=== PATIENT | male | born 1950 | race Caucasian/White ===

== ENCOUNTER 2022-12-05 13:47 | Outpatient (OUT) | payer MEDICARE, OTHER, SELFPAY ==
[2022-12-05 15:06] LABS: Thyroid Stimulating Hormone 1.576 uIU/mL (0.358-3.740)
[2022-12-06 04:07] LABS: Vitamin B12 740 pg/mL (232-1245)
[2022-12-09 06:37] LABS: Methylmalonic Acid, Serum 122 nmol/L (0-378)
== END 2022-12-05 13:48 | disposition home or self-care (01) ==
LOC: LAB 13:53
PROVIDERS: PCP Family Medicine; Visit Provider Psychiatry & Neurology Neurology
DX: R41.3 Other amnesia (principal)
CPT/HCPCS: 36415; 82607; 82746; 83921; 84443